=== PATIENT | female | born 1975 | race Caucasian/White ===

== ENCOUNTER → 2018-06-07 | Outpatient (CLI) | payer BC ==
[~2018-06-07] MED LIST: BACTRIM DS TAB1 EACH; BYSTOLIC10 MG PO
--- NOTE | 2018-06-07 11:54 | Diagnostic Imaging Report ---
TECHNIQUE: Magnetic resonance imaging of the RIGHT HIP and femur was performed WITHOUT injected contrast. HISTORY: Pain, mass COMPARISON: None available. FINDINGS: Bone: No focal or infiltrative bone marrow replacing abnormality. No osteonecrosis or acute fracture. Femoroacetabular Joint: Acetabular labrum: No displaced labral tear. Articular Cartilage: No focal defect. Muscle and tendons: The visualized tendons appear intact. Soft tissues: Subcutaneous soft tissue mass in the lateral aspect right upper thigh measuring 7.5 x 6.4 x 4.3 cm. The mass is predominantly T1 isointense to the surrounding subcutaneous fat. Increased vascularity and trabeculation in comparison with the adjacent fat. No confluent solid nodular component. IMPRESSION: 7.5 cm fat-containing lesion in the lateral subcutaneous fat of the right thigh. 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 Signed by: Dr. Rick Joe M.D. on 06/07/2018 11:51 AM
== END ==
LOC: MRI 08:36
PROVIDERS: ATTEND Surgery
DX: R22.41 Localized swelling, mass and lump, right lower limb (principal)

== ENCOUNTER → 2018-06-15 | Day surgery (SDC) | payer BC ==
[2018-06-12 14:58] LABS: BASOPHILS % 0.4 % (0.0-1.0); EOSINOPHILS % 0.4 % (0.0-6.0); HEMATOCRIT 38.3 % (34.2-44.1); HEMOGLOBIN 12.3 g/dL (12.0-16.0); LYMPHOCYTES # (AUTO) 2.5 (1.0-3.2); LYMPHOCYTES % 33.6 % (18.0-39.1); MEAN CORPUSCULAR HEMOGLOBIN 25.8 pg (28-32); MEAN CORPUSCULAR HGB CONC 32.1 g/dL (31-35); MEAN CORPUSCULAR VOLUME 80.5 fL (81-99); MONOCYTES # (AUTO) 0.5 (0.2-0.8); MONOCYTES % 6.5 % (4.4-11.3); NEUTROPHILS # (AUTO) 4.4 (2.1-6.9); NEUTROPHILS % 58.8 % (38.7-80.0); PLATELET COUNT 228 x10e3/uL (140-360); RED BLOOD COUNT 4.76 x10e6/uL (3.6-5.1); RED CELL DISTRIBUTION WIDTH 13.7 % (11.7-14.4)
[2018-06-12 15:12] LABS: ANION GAP 14.2 mmol/L (8-16); BLOOD UREA NITROGEN 16 mg/dL (7-26); BUN/CREATININE RATIO 24 (6-25); CARBON DIOXIDE 26 mmol/L (22-29); CHLORIDE 107 mmol/L (98-107); CREATININE, SERUM 0.68 mg/dL (0.57-1.11); EST GLOMERULAR FILTRATION RATE > 60 ML/MIN (60-); GLUCOSE 84 mg/dL (74-118); POTASSIUM 4.2 mmol/L (3.5-5.1); SODIUM 143 mmol/L (136-145)
[~2018-06-15] MED LIST changes: +ACETAMINOPHEN 1000 MG/100 ML 100 ML IV ONE; +BIOTIN PO; +BUPIVACAINE 0.25%/EPI 30ML SDV INJ ONE; +DEXAMETHASONE SOD PHOS INJ 4 MG/ML VIAL ONE; +FENTANYL CITRATE/PF 100MCG/2 ML INJ ONE; +IRON PO; +KETOROLAC TROMETHAMINE 30 MG/ML VIAL ONE; +LIDOCAINE HCL 2% LOCAL INJ 5 ML SDV VIAL INJ ONE; +METFORMIN HCL500 MG PO; +METOPROLOL SUCC25 MG PO; +MIDAZOLAM HCL 2 MG/2 ML VIAL ONE; +MULTIVITAMINS1 EAC7 PO; +ONDANSETRON HCL INJ 2 MG/ML VIAL ONE; +PROPOFOL IV EMULSION 10 MG/ML 20 ML VIAL ONE; +SEVOFLURANE INHAL SOLN 250 ML PEN BTL ONE
--- NOTE | 2018-06-15 09:40 | Operative Report ---
DATE OF PROCEDURE: June 15, 2018 PREOPERATIVE DIAGNOSIS: Lipoma of the right thigh. POSTOPERATIVE DIAGNOSIS: Lipoma of the right thigh. PROCEDURE PERFORMED: Excision of lipoma of the right thigh. ANESTHESIA: General. ESTIMATED BLOOD LOSS: Minimal. DRAINS: None. COMPLICATIONS: None. INDICATIONS AND FINDINGS: The patient is a 42-year-old female admitted for excision of a mass of the right thigh that has been present for 2 years, recently increasing in size. INTRAOPERATIVE FINDINGS: The patient had a 10 x 5 cm mass of the right upper lateral thigh distal to the hip area. It was firm and contained several firm nodules within the mass. The mass was excised with clean margins down to the fascia. At some point, where the mass was more adherent to the fascia, we excised part of the fascia there. DESCRIPTION OF PROCEDURE: With the patient lying on the operative table in the supine position, after administration of general anesthesia, she was prepped and draped for excision of lipoma of the right upper thigh. A longitudinal incision was made along the long axis of the thigh, and the dissection was carried down through the skin and subcutaneous tissue until the mass was identified. It was then excised with clear margins. The wound was irrigated and bleeding points cauterized. Then the wound was closed in layers using a combination of #0 chromic catgut for the deeper plane and 2-0 Vicryl for the more superficial plane, and then the skin was closed with a subcuticular 5-0 Vicryl. Four interrupted 3-0 silks were placed to decrease tension. The patient tolerated the procedure well was taken to recovery room in stable condition. Job#: [id number]
== END | disposition home or self-care (01) ==
LOC: OR 05:54
PROVIDERS: ATTEND Surgery
DX: D17.23 Benign lipomatous neoplasm of skin and subcutaneous tissue of right leg (principal); E11.9 Type 2 diabetes mellitus without complications; Z79.84 Long term (current) use of oral hypoglycemic drugs; I47.1 Supraventricular tachycardia; F41.9 Anxiety disorder, unspecified; Z98.84 Bariatric surgery status; Z01.810 Encounter for preprocedural cardiovascular examination; Z01.812 Encounter for preprocedural laboratory examination
CPT/HCPCS: 27337; 36415 ×2; 80048; 81025; 82948; 85025; 88305; 88307; 93005; J1100; J1885; J2001; J2250; J2405